=== PATIENT | male | born 1995 | race Asian ===

== ENCOUNTER 2019-09-08 15:57 | Emergency (ER) | payer OTHER, SELFPAY ==
[~2019-09-08] VITALS: Ht 180.3 cm; Wt 69.3 kg
[2019-09-08 15:58] VITALS: BP 131/80
[2019-09-08] MEDS ORDERED: ACETAMINOPHEN 325 MG TAB PO ONE (16:30)
== END 2019-09-08 17:24 | disposition home or self-care (01) ==
LOC: M ED 15:57
DX: R51 Headache (principal); Z11.59 Encounter for screening for other viral diseases; Z20.828 Contact with and (suspected) exposure to other viral communicable diseases
CPT/HCPCS: 87486; 87581; 87633; 87798; 99282; U0002